=== PATIENT | female | born 1970 | race Caucasian/White ===

== ENCOUNTER 2019-04-24 16:27 | Emergency (ER) | payer BC ==
[2019-04-24 16:45] VITALS: BP 140/70
--- NOTE | 2019-04-24 16:54 | UC ---
Cardiac HPI - HPI Summary HPI Summary: 48-year-old female presents with sudden onset of midsternal chest pain just prior to arrival. States that she was at work sitting and talking with someone when the pain started. Reports that the pain radiated through to her mid back. Pain was associated with diaphoresis and shortness of breath. States that the chest pain subsided on her way to urgent care. Lasts for approximately 30 minutes. Patient reports that she has had 2 similar episodes within the last couple of weeks that occurred at night and awoke her from sleep. No recent surgery, confinement, or hormone use. Denies recent illness, palpitations, weakness, dizziness, cough, hemoptysis, heartburn, abdominal pain, nausea, vomiting or calf pain or swelling. - History of Current Complaint Chief Complaint: UCChestPain Stated Complaint: BACK AND CHEST PAIN Time Seen by Provider: 04/24/19 16:34 Hx Obtained From: Patient Hx Last Menstrual Period: 04/24/19 Pain Intensity: 2 - Allergy/Home Medications Allergies/Adverse Reactions: Allergies Allergy/AdvReac Type Severity Reaction Status Date / Time environmental Allergy Congestion Uncoded 04/24/19 16:46 Home Medications: Home Medications Fluticasone Propionate [Flonase Allergy Relief] 2 spray INH ONCE PRN 04/24/19 [ History Confirmed 04/24/19] Ibuprofen [Advil] 800 mg PO ONCE PRN 04/24/19 [History Confirmed 04/24/19] PMH/Surg Hx/FS Hx/Imm Hx Previously Healthy: Yes - Denies significant PMH - Surgical History Surgical History: None - Family History Known Family History: Positive: Cardiac Disease - Paternal grandfather, Hypertension - Father, Blood Disorder - Mother from blood clot s/p surgery Negative: Diabetes - Social History Occupation: Employed Full-time Lives: With Family Alcohol Use: Weekly Substance Use Type: None Smoking Status (MU): Never Smoked Tobacco Review of Systems All Other Systems Reviewed And Are Negative: Yes Constitutional: Negative: Fever, Chills Skin: Negative: Rash ENT: Positive: Negative Respiratory: Positive: Shortness Of Breath. Negative: Cough Cardiovascular: Positive: Chest Pain. Negative: Palpitations Gastrointestinal: Negative: Abdominal Pain, Vomiting, Nausea Genitourinary: Positive: Negative Musculoskeletal: Positive: Negative Neurological: Positive: Negative Is Patient Immunocompromised?: No Physical Exam - Summary Physical Exam Summary: GENERAL APPEARANCE: Well developed, well nourished, alert and cooperative, and appears to be in no acute distress. EYES: Conjunctiva clear. No drainage. PERRL, EOM intact. Vision is grossly intact. EARS: External auditory canals and tympanic membranes clear, hearing grossly intact. NOSE: No nasal discharge. THROAT: Pharynx normal No tonsilar inflammation, swelling, exudate, or lesions. Uvula midline. Oral cavity normal. Teeth and gingiva in good general condition. NECK: Neck supple, non-tender without lymphadenopathy. CARDIAC: Normal S1 and S2. No S3, S4 or murmurs. Rhythm is regular. There is no peripheral edema, cyanosis or pallor. Extremities are warm and well perfused. Capillary refill is less than 2 seconds. Peripheral pulses intact. LUNGS: Clear to auscultation without rales, rhonchi, wheezing or diminished breath sounds. ABDOMEN: Positive bowel sounds. Soft, nondistended, nontender. No guarding or rebound. No masses or hepatosplenomegally. MUSKULOSKELETAL: ROM intact to all extremities. No joint erythema or tenderness. Normal muscular development. Normal gait. SKIN: Skin normal color, texture and turgor with no lesions or eruptions. Triage Information Reviewed: Yes Vital Signs: Initial Vital Signs Temp 98.3 F 04/24/19 16:34 Pulse 66 04/24/19 16:34 Resp 18 04/24/19 16:34 BP 140/70 04/24/19 16:34 Pulse Ox 96 04/24/19 16:34 Vital Signs Reviewed: Yes Diagnostics - EKG Cardiac Rate: NL - Rate 71 Cardiac Rhythm: Sinus: Normal Ectopy: None ST Segment: Normal - Assessment/Plan Course Of Treatment: 48-year-old female presents with sudden onset of midsternal chest pain just prior to arrival. States that she was at work sitting and talking with someone when the pain started. Reports that the pain radiated through to her mid back. Pain was associated with diaphoresis and shortness of breath. States that the chest pain subsided on her way to urgent care. Lasts for approximately 30 minutes. Patient reports that she has had 2 similar episodes within the last couple of weeks that occurred at night and awoke her from sleep. No recent surgery, confinement, or hormone use. Denies recent illness, palpitations, weakness, dizziness, cough, hemoptysis, heartburn, abdominal pain, nausea, vomiting or calf pain or swelling. Afebrile. Hypertensive otherwise vital signs stable. EKG showed normal sinus rhythm without ectopy, ST elevation, or T -wave abnormality. Her exam was overall unremarkable. Discussed with the patient that although she has low risk factors I cannot fully rule out serious causes for her chest pain including coronary artery disease, PE, or aortic aneurysm negative therefore recommending that she be further evaluated in the emergency room at this time. Patient is agreeable to this and is electing to transport via private vehicle her spouse driving. - Differential Diagnoses - Chest Pain Differential Diagnosis/HQI/PQRI: Acute OR, ACS, Aortic Aneurysm, GI Disease, Lower Respiratory Infection, Pulmonary Embolism - Clinical Impression Provider Diagnosis: Chest pain Discharge - Sign-Out/Discharge Documenting (check all that apply): Patient Departure All imaging exams completed and their final reports reviewed: No Studies - Discharge Plan Condition: Stable Disposition: HOME-RECOMMEND TO ED Patient Education Materials: Chest Pain (ED) Referrals: Martita Tabor MD [Primary Care Provider] - Additional Instructions: Your EKG performed in the clinic today was normal however based on your symptoms I cannot fully rule out a serious cause for your pain. I am recommending that you go directly to the emergency room from here for further evaluation of your pain. - Billing Disposition and Condition Condition: STABLE Disposition: Home-Recommend to ED - Attestation Statements Provider Attestation: This patient was not examined by me. I was available for consult. YAMILE I reviewed the EKG and read it as normal
== END 2019-04-24 17:19 | disposition home health service (06) ==
LOC: UCEAST 16:27
DX: R07.89 Other chest pain (principal)
CPT/HCPCS: 93005; 99202; G0463

== ENCOUNTER 2019-04-24 17:44 | Emergency (ER) | payer BC ==
[2019-04-24 18:30] LABS: ABS Basophils 0.1 10^3/ul (0-0.2); ABS Eosinophils 0.1 10^3/ul (0-0.6); ABS Lymphocytes 1.8 10^3/ul (1.0-4.8); ABS Monocytes 0.9 10^3/ul (0-0.8); ABS Neutrophils 10.1 10^3/ul (1.5-7.7); Eosinophil % 0.7 %; Hematocrit 40 % (35-47); Hemoglobin 13.3 g/dL (12.0-16.0); Lymphocyte % 13.8 %; Mean Corpuscular HGB Conc 34 g/dL (31-36); Mean Corpuscular Hemoglobin 32 pg (27-31); Mean Corpuscular Volume 95 fL (80-97); Mean Platelet Volume 7.5 fL (7.4-10.4); Platelet Count 331 10^3/uL (150-450); Red Blood Count 4.14 10^6 /uL (3.70-4.87); Red Cell Distribution Width 13 % (10-15); White Blood Count 12.9 10^3/uL (3.5-10.8)
[2019-04-24 18:37] LABS: INR 0.95 (0.82-1.09)
[2019-04-24 18:49] LABS: Albumin 4.1 g/dL (3.2-5.2); Albumin/Globulin Ratio 1.5 (1-3); BUN/Creatinine Ratio 16.9 (8-20); Calcium 9.3 mg/dL (8.6-10.3); EGFR African American 89.2 (>60); EGFR Non-African American 73.7 (>60); Globulin 2.8 g/dL (2-4); Potassium 3.9 mmol/L (3.5-5.0); Total Bilirubin 0.4 mg/dL (0.2-1.0); Total Protein 6.9 g/dL (6.4-8.9)
--- NOTE | 2019-04-24 19:52 | ED ---
HPI Chest Pain - HPI Summary HPI Summary: Pt is a 48 y/o F presenting to the ED with a chief complaint of chest pain initially onset around 1530 this date when she was standing speaking to another coworker. She felt tightness and pain in her epigastric region spreading to her back, with associated diaphoresis, mild SOB, and generalized weakness. This has happened before, she states the last two episodes happened while she was asleep and lasted a while. She denies calf edema, Sx alleviated by nothing, and aggravated by sitting or lying down. - History of Current Complaint Chief Complaint: EDChestPainROMI Time Seen by Provider: 04/24/19 19:03 Hx Obtained From: Patient Hx Last Menstrual Period: 04/24/19 Onset/Duration: Started Hours Ago, Resolved Timing: Intermittent, Lasting Hours Initial Severity: Moderate Current Severity: None Pain Intensity: 0 Pain Scale Used: 0-10 Numeric Chest Pain Location: Lower Sternal Chest Pain Radiates: Yes Chest Pain Radiates To:: Back, Epigastric Character: Tightness Aggravating Factor(s): Position Alleviating Factor(s): Nothing Associated Signs and Symptoms: Positive: Chest Pain, Weakness, Shortness of Breath, Diaphoresis. Negative: Calf Pain/Swelling - Allergy/Home Medications Allergies/Adverse Reactions: Allergies Allergy/AdvReac Type Severity Reaction Status Date / Time environmental Allergy Congestion Uncoded 04/24/19 16:46 PMH/Surg Hx/FS Hx/Imm Hx Previously Healthy: Yes Endocrine/Hematology History: Denies: Hx Diabetes Cardiovascular History: Denies: Hx Hypertension - Cancer History Hx Chemotherapy: No Hx Radiation Therapy: No - Immunization History Immunizations Up to Date: Yes Infectious Disease History: No Infectious Disease History: Denies: Traveled Outside the [place] in Last 30 Days - Family History Known Family History: Positive: Cardiac Disease - Paternal grandfather, Hypertension - Father, Blood Disorder - Mother from blood clot s/p surgery Negative: Diabetes - Social History Alcohol Use: Weekly Hx Substance Use: No Substance Use Type: Reports: None Hx Tobacco Use: No Smoking Status (MU): Never Smoked Tobacco Review of Systems Positive: Skin Diaphoresis Positive: Chest Pain Positive: Shortness Of Breath Negative: Edema Positive: Weakness All Other Systems Reviewed And Are Negative: Yes Physical Exam - Summary Physical Exam Summary: Constitutional: Well-developed, Well-nourished, Alert. (-) Distressed Skin: Warm, Dry HENT: Normocephalic; Atraumatic Eyes: Conjunctiva normal Neck: Musculoskeletal ROM normal neck. (-) JVD, (-) Stridor, (-) Tracheal deviation Cardio: Rhythm regular, rate normal, no murmurs present. Heart sounds normal; Intact distal pulses; The pedal pulses are 2+ and symmetric. Radial pulses are 2 + and symmetric. Pulmonary/Chest wall: Effort normal. (-) Respiratory distress, (-) Wheezes, (-) Rales Abd: Soft, (-) tenderness, (-) Distension, (-) Guarding, (-) Rebound Musculoskeletal: (-) Edema, no calf tenderness Neuro: Alert, Oriented x3 Psych: Mood and affect Normal Triage Information Reviewed: Yes Vital Signs On Initial Exam: Initial Vitals Temp Pulse Resp BP Pulse Ox 97.8 F 74 20 137/79 98 04/24/19 17:52 04/24/19 17:52 04/24/19 17:52 04/24/19 17:52 04/24/19 17:52 Vital Signs Reviewed: Yes Diagnostics - Vital Signs Vital Signs Temp Pulse Resp BP Pulse Ox 04/24/19 19:41 21 04/24/19 19:11 62 124/76 98 04/24/19 17:52 97.8 F 74 20 137/79 98 - Laboratory Lab Results: Lab Results 04/24/19 04/24/19 04/24/19 Range/Units 18:12 18:12 18:12 WBC 12.9 H (3.5-10.8) 10^3/uL RBC 4.14 (3.70-4.87) 10^6 /uL Hgb 13.3 (12.0-16.0) g/dL Hct 40 (35-47) % MCV 95 (80-97) fL MCH 32 H (27-31) pg MCHC 34 (31-36) g/dL RDW 13 (10-15) % Plt Count 331 (150-450) 10^3/uL MPV 7.5 (7.4-10.4) fL Neut % (Auto) 78.3 % Lymph % (Auto) 13.8 % [place] % (Auto) 6.7 % Eos % (Auto) 0.7 % Baso % (Auto) 0.5 % Absolute Neuts (auto) 10.1 H (1.5-7.7) 10^3/ul Absolute Lymphs (auto) 1.8 (1.0-4.8) 10^3/ul Absolute Monos (auto) 0.9 H (0-0.8) 10^3/ul Absolute Eos (auto) 0.1 (0-0.6) 10^3/ul Absolute Basos (auto) 0.1 (0-0.2) 10^3/ul Absolute Nucleated RBC 0.0 10^3/ul Nucleated RBC % 0.0 INR (Anticoag Therapy) 0.95 (0.82-1.09) Sodium 139 (135-145) mmol/L Potassium 3.9 (3.5-5.0) mmol/L Chloride 108 (101-111) mmol/L Carbon Dioxide 25 (22-32) mmol/L Anion Gap 6 (2-11) mmol/L BUN 14 (6-24) mg/dL Creatinine 0.83 (0.51-0.95) mg/dL Est GFR ( Amer) 89.2 (>60) Est GFR (Non-Af Amer) 73.7 (>60) BUN/Creatinine Ratio 16.9 (8-20) Glucose 99 (70-100) mg/dL Calcium 9.3 (8.6-10.3) mg/dL Total Bilirubin 0.40 (0.2-1.0) mg/dL AST 31 (13-39) U/L ALT 21 (7-52) U/L Alkaline Phosphatase 44 (34-104) U/L Troponin I 0.00 (<0.04) ng/mL Total Protein 6.9 (6.4-8.9) g/dL Albumin 4.1 (3.2-5.2) g/dL Globulin 2.8 (2-4) g/dL Albumin/Globulin Ratio 1.5 (1-3) Result Diagrams: 04/24/19 18:12 04/24/19 18:12 Lab Statement: Any lab studies that have been ordered have been reviewed, and results considered in the medical decision making process. - EKG 2026 Cardiac Rate: Bradycardia - 57bpm EKG Rhythm: Sinus Bradycardia ST Segment: Normal Ectopy: None Summary of EKG Findings: An EKG at 2026 reveals sinus bradycardia at 57bpm with nml axis, nml intervals, and questionable Q-waves in III. No STEMI. No acute changes. Chest Pain Course/Dx - Course Course Of Treatment: Pt is a 48 y/o F presenting to the ED with a chief complaint of chest pain initially onset around 0 this date when she was standing speaking to another coworker. She felt tightness and pain in her epigastric region spreading to her back, with associated diaphoresis, mild SOB, and generalized weakness. She denies calf edema. The pt's physical exam is nml. She states her grandfather had multiple MIs in his 70s, her mother of a blood clot s/p surgery, and her sister has had blood clots in the past , partially d/t obesity. D/t the pt's slight risk for blood clots, I will be drawing a D-Dimer as well as waiting to run a second set of labs (including Troponin) to r/o cardiac complications. She is PERC negative. Pts lab results show WBC of 12.9 and MCH of 32. All other lab results are WNL. An EKG at 2026 reveals sinus bradycardia at 57bpm with nml axis, nml intervals, and questionable Q-waves in III. No STEMI. No acute changes. Pt's D-Dimer is nml. The pt's first and second troponin levels are negative. She will be sent home with dx of chest tightness. - Diagnoses Provider Diagnoses: Chest tightness Discharge - Sign-Out/Discharge Documenting (check all that apply): Patient Departure Patient Received Moderate/Deep Sedation with Procedure: No - Discharge Plan Condition: Stable Disposition: HOME Patient Education Materials: Chest Pain (ED) Referrals: Martita Tabor MD [Primary Care Provider] - Additional Instructions: Please follow up with your primary care provider within the next 2-3 days. Return to the emergency department with any new or worsening symptoms. - Billing Disposition and Condition Condition: STABLE Disposition: Home - Attestation Statements Document Initiated by Scribe: Yes Documenting Scribe: Kala Morgan Provider For Whom Scribe is Documenting (Include Credential): Jesus Zuñiga MD. Scribe Attestation: Kala Oglesby, scribed for Jesus Zuñiga MD. on 04/25/19 at 0503. Scribe Documentation Reviewed: Yes Provider Attestation: The documentation as recorded by the scribe, Kala Morgan accurately reflects the service I personally performed and the decisions made by me, Jesus Zuñiga MD. Status of Scribe Document: Viewed
[2019-04-24 21:53] VITALS: BP 118/79
== END 2019-04-24 21:54 | disposition home or self-care (01) ==
LOC: ED 17:44
DX: R07.9 Chest pain, unspecified (principal)
CPT/HCPCS: 36415; 80053; 84484; 85025; 85379; 85610; 93005; 99282